=== PATIENT | male | born 1985 | race Caucasian/White ===

== ENCOUNTER 2021-01-26 20:23 | Emergency (ER) | payer OTHER ==
[2021-01-26 21:17] LABS: BASOPHIL 0.3 % (0-2); EOSINOPHIL 1.3 % (0-5); HCT 45.9 % (42.0-52.0); LYMPHOCYTE 34.4 % (15-48); MCH 32.9 pg (25.0-31.0); MCV 88.8 fL (78.0-100.0); MONOCYTE 7.7 % (0-12); MPV 9.4 fL (6.0-9.5); NEUTROPHIL 56.1 % (41-80); NRBC 0; PLT 160 K/uL (150-400); RBC 5.17 M/uL (4.70-6.00); RDW 12.2 % (11.5-14.0); WBC 6.1 K/uL (4.0-10.5)
[2021-01-26 21:26] LABS: ALBUMIN 3.9 g/dL (3.4-5.0); BUN/CREAT RATIO (CALC) 5.6 RATIO; CREATININE 1.08 mg/dL (0.67-1.17); GLOBULIN (CALCULATION) 3.1 g/dL; POTASSIUM 3.4 mmol/L (3.5-5.1)
[2021-01-26 21:31] LABS: LACTIC ACID 3.5 mmol/L (0.4-1.9)
[2021-01-26 21:41] LABS: BILIRUBIN 2+ mg/dL (NEGATIVE); BLOOD NEGATIVE Ery/uL (NEGATIVE); CLARITY CLEAR (CLEAR); COLOR YELLOW (YELLOW); GLUCOSE (U) TRACE mg/dL (NORMAL); LEUKOCYTES NEGATIVE Leu/uL (NEGATIVE); NITRITE POSITIVE (NEGATIVE); PROTEIN 2+ mg/dL (NEGATIVE); SPECIFIC GRAVITY 1.025 (1.001-1.030); UROBILINOGEN >=8.0 mg/dL (0.2-1.0); pH 6.5 (5.0-9.0)
[2021-01-26 21:47] LABS: BACTERIA 2+; SQUAMOUS EPITHELIAL CELLS RARE; TRANSITIONAL EPITHELIAL CELLS RARE
[2021-01-26 21:48] LABS: AMPHETAMINES NEGATIVE (NEGATIVE); BARBITURATES NEGATIVE (NEGATIVE); ECSTASY (MDMA) NEGATIVE (NEGATIVE); MARIJUANA (THC) NEGATIVE (NEGATIVE); METHADONE NEGATIVE (NEGATIVE); OPIATES NEGATIVE (NEGATIVE); OXYCODONE NEGATIVE (NEGATIVE)
[2021-01-26 22:58] LABS: CORONAVIRUS 2019 SARS-COV-2 NEGATIVE (NEGATIVE); INFLUENZA A NAA NEGATIVE (NEGATIVE)
== END 2021-01-27 04:18 ==
LOC: FER 20:23
PROVIDERS: Emergency Medicine Emergency Medical Services
DX: F10.139 Alcohol abuse with withdrawal, unspecified (principal); F17.210 Nicotine dependence, cigarettes, uncomplicated; Y90.6 Blood alcohol level of 120-199 mg/100 ml; Z20.822 Contact with and (suspected) exposure to COVID-19
CPT/HCPCS: 36415; 71045; 74018; 80053; 80305; 81001; 83605; 83690; 85025; 93005; G0480; J2060; J2405; J3411; J7030; J7120; U0002